=== PATIENT | male | born 1955 | race Caucasian/White ===

== ENCOUNTER 2017-01-15 08:41 | Emergency (ER) | payer MEDICARE ==
--- NOTE | 2017-01-15 11:55 | ED ---
Throat Pain/Nasal Congestion - HPI Summary HPI Summary: Pt here w/ URI sx x [address], nasal congestion, ear pressure, cough. Denies fever, chills, N/V/D, chest pain, SOB, wheezing, rash. Has tried 1 cough drop prior to arrival. No h/o COPD, asthma, bronchitis or pneumonia. Here visiting from [place]. Quit smoking years ago. - History of Current Complaint Chief Complaint: EDUpperRespComplaint Time Seen by Provider: 01/15/17 11:25 Hx Obtained From: Patient - Allergies/Home Medications Allergies/Adverse Reactions: Allergies Allergy/AdvReac Type Severity Reaction Status Date / Time No Known Allergies Allergy Verified 03/19/13 10:45 PMH/Surg Hx/FS Hx/Imm Hx Previously Healthy: Yes Endocrine/Hematology History: Denies: Hx Anticoagulant Therapy, Hx Blood Disorders, Hx Diabetes, Autoimmune Disease Cardiovascular History: Reports: Hx Hypertension - takes meds, Other Cardiovascular Problems/Disorders - blood clot both legs Denies: Hx Cardiac Arrest, Hx Myocardial Infarction Respiratory History: Denies: Hx Asthma, Hx Chronic Obstructive Pulmonary Disease (COPD) Musculoskeletal History: Reports: Hx Back Problems, Other Musculoskeletal History - DJD, 2 herniated disks, chronic back pain - Surgical History Surgery Procedure, Year, and Place: gallbladder, appendix removed Infectious Disease History: No Infectious Disease History: Denies: Traveled Outside the [place] in Last 30 Days - Social History Occupation: Retired Lives: With Family Alcohol Use: None Hx Substance Use: No Substance Use Type: Reports: None Hx Tobacco Use: Yes - quit 7 years ago Smoking Status (MU): Former Smoker Type: Cigarettes Have You Smoked in the Last Year: No Review of Systems Constitutional: Negative Negative: Fever, Chills, Fatigue Eyes: Negative Negative: Drainage, Erythema ENT: Other - see HPI Cardiovascular: Negative Positive: Cough. Negative: Shortness Of Breath Gastrointestinal: Negative Positive: no symptoms reported Negative: Arthralgia, Myalgia Skin: Negative Neurological: Negative Negative: Headache, Weakness, Syncope Psychological: Normal All Other Systems Reviewed And Are Negative: Yes Physical Exam Triage Information Reviewed: Yes Vital Signs On Initial Exam: Initial Vitals Temp Pulse Resp BP Pulse Ox 97.1 F 75 16 159/77 94 01/15/17 08:44 01/15/17 08:44 01/15/17 08:44 01/15/17 08:44 01/15/17 08:44 Vital Signs Reviewed: Yes Appearance: Positive: No Pain Distress - appears mildly fatigued but overall alert, responding timely and appropriately, NAD, Obese Skin: Positive: Warm, Dry Head/Face: Positive: Normal Head/Face Inspection Eyes: Positive: Normal, EOMI, Conjunctiva Clear. Negative: Conjunctiva Inflammed, Discharge ENT: Positive: Normal ENT inspection, Hearing grossly normal, Pharyngeal erythema - cobblestoning, Nasal congestion, TMs normal. Negative: Nasal drainage, Tonsillar swelling, Tonsillar exudate Neck: Positive: Supple, Nontender, No Lymphadenopathy Respiratory/Lung Sounds: Positive: Clear to Auscultation, Breath Sounds Present , Other - coughs once after deep breath - recovers well. Negative: Rales, Rhonchi, Wheezes Cardiovascular: Positive: Normal, RRR, S1, S2. Negative: Murmur, Rub Abdomen Description: Positive: Soft Bowel Sounds: Positive: Present Musculoskeletal: Positive: Normal, Strength/ROM Intact Neurological: Positive: Normal, Sensory/Motor Intact, Alert, Oriented to Person Place, Time, CN Intact II-III Psychiatric: Positive: Normal - Gali Coma Scale Coma Scale Total: 15 Diagnostics - Vital Signs Vital Signs Temp Pulse Resp BP Pulse Ox 01/15/17 10:02 97.8 F 72 22 124/70 93 01/15/17 08:44 97.1 F 75 16 159/77 94 - Laboratory Lab Statement: Any lab studies that have been ordered have been reviewed, and results considered in the medical decision making process. EENT Course/Dx - Diagnoses Provider Diagnoses: Viral URI with cough Discharge - Discharge Plan Condition: Stable Disposition: HOME Patient Education Materials: Upper Respiratory Infection (ED) Referrals: Brianna Richards NP [Primary Care Provider] - Additional Instructions: Nasal wash (netti pot) & throat gargle 2 x day with 8 ounces of warm water + 1/ 4 teaspoon of salt Drink 60+ ounces of water daily Sleep 8+ hours per night Avoid Dairy and sugar Hot herbal/decaf tea with lemon & honey Chicken broth (preferably organic, free range chicken) Humidifier in house, but especially near bed at night Try a facial steam with or without eucalyptus essential oil Try Coricidin HBP for cold symptoms - avoid other OTC MEDS as they may increase blood pressure Consider taking Vitamin D3 5,000iu and Vitamin C 1,000mg every day during illness *If you develop shortness of breath, chest pain, productive cough, fever, chills , return to ED
[2017-01-15 12:16] VITALS: BP 120/74
== END 2017-01-15 12:14 | disposition home or self-care (01) ==
LOC: ED 08:41
DX: J06.9 Acute upper respiratory infection, unspecified (principal); R05 Cough; Z87.891 Personal history of nicotine dependence
CPT/HCPCS: 99282